=== PATIENT | male | born 1990 | race Hispanic/Latino ===

== ENCOUNTER 2019-06-27 22:24 | Emergency (ER) | payer OTHER ==
[~2019-06-27] VITALS: Ht 177.8 cm; Wt 94.0 kg
[2019-06-27] MEDS ORDERED: TRIAMCINOLON0.025 % EX (23:30)
[2019-06-27] MEDS ORDERED: KEFLEX500 MG PO (23:31)
[2019-06-27 23:50] VITALS: BP 128/78
== END 2019-06-27 23:50 | disposition home or self-care (01) | DRG 603 ==
LOC: ED 22:24
DX: L03.114 Cellulitis of left upper limb (principal); S40.862A Insect bite (nonvenomous) of left upper arm, initial encounter; F17.210 Nicotine dependence, cigarettes, uncomplicated; W57.XXXA Bitten or stung by nonvenomous insect and other nonvenomous arthropods, initial encounter